=== PATIENT | male | born 1995 | race Caucasian/White ===

== ENCOUNTER 2019-04-11 09:48 | Day surgery (SDC) | payer BC ==
--- NOTE | 2019-04-08 11:03 | RAD REPORT ---
EXAM DESCRIPTION: RAD - Chest Pa And Lat (2 Views) - 04/08/2019 10:58 am CLINICAL HISTORY: preop Chest pain. COMPARISON: CHEST PA AND LAT 2 VIEW dated 07/29/2007 FINDINGS: The lungs are clear. The heart is normal in size. No displaced fractures. IMPRESSION: No acute or concerning finding suspected.
[2019-04-08 11:11] LABS: Absolute Lymphocytes (CBC) 2.4 K/uL (0.7-4.9); Basophils % 0.5 % (0-1.3); Lymphocytes % 33.5 % (15.3-44.8); MPV 8.3 fL (7.6-11.3); RBC Red Blood Cell Count 4.81 M/uL (4.33-5.43)
[2019-04-08 11:24] LABS: BUN Blood Urea Nitrogen 10 mg/dL (7-18); Bicarbonate 29 mmol/L (21-32); Glucose Level 154 mg/dL (74-106); Potassium 3.9 mmol/L (3.5-5.1); Sodium Level 139 mmol/L (136-145)
[2019-04-11] MEDS ORDERED: Ringers Lactate 1,000 ML IV ONE (10:04)
[2019-04-11] MEDS ORDERED: CEFAZOLIN/SWI 1gm 1 GM/10 ML SYR ONE (10:04)
[2019-04-11] MEDS ORDERED: BUPIVACAINE 0.5% PF 10 ML VIAL ONE (10:43)
[2019-04-11] MEDS ORDERED: dexAMETHasone 10 MG/ML VIAL ONE ×2 (10:46)
[2019-04-11] MEDS ORDERED: ROPLVACAINE HCL 20 ML ONE (10:46)
[2019-04-11] MEDS ORDERED: LIDOCAINE 2% MPF 5 ML VIAL ONE ×2 (10:46)
[2019-04-11] MEDS ORDERED: NS 0.9% VIAL 20 ML ONE (10:46)
[2019-04-11] MEDS ORDERED: FENTANYL CITR 100 MCG/2 ML ONE (10:46)
[2019-04-11] MEDS ORDERED: propofoL 200 MG/20 ML VIAL IV ONE (10:46)
[2019-04-11] MEDS ORDERED: MIDAZOLAM HCL 2 MG/2 ML INJ ONE (10:46)
[2019-04-11] MEDS ORDERED: ONDANSETRON 4 MG/2 ML VIAL ONE (10:46)
[2019-04-11] MEDS ORDERED: KETOROLAC 30 MG/ML INJ ONE (11:34)
--- NOTE | 2019-04-11 11:54 | P.BOP ---
Preoperative diagnosis: 4 tender scrotal subcutaneous masses Postoperative diagnosis: same Primary procedure: Excisional bipsy tender scrotal subcutaneous masses: 1. Right lateral 2x2cm Secondary procedure: 2. left lateral 2x2cm, 3. Medial superior 1x1cm, 4. inferior 1x1cm Estimated blood loss: <10cc Specimen: masses x 4 Findings: masses x4 subQ does not penetrate inside scrotal sac. Anesthesia: General Complications: None Transferred to: Recovery Room Condition: Good
[2019-04-11] MEDS ORDERED: LABETALOL HCL 100 MG/20 ML ONE (12:35)
[2019-04-11] MEDS ORDERED: CODEINE 30MG/APAP 300MG TAB ONE (13:55)
[2019-04-11 15:11] VITALS: BP 149/88; TEMP 97.8; O2SAT 96
--- NOTE | 2019-04-12 00:38 | DS ---
Date of Discharge: 04/11/2019 Diagnosis: Four scrotal subcutaneous masses. Procedure: Excisional biopsy of 4 scrotal subcutaneous masses. Disposition: Home. Activity: As tolerated. No heavy lifting. Followup: Follow up in my office in 1 week. Call for appointment, [phone]. Keep area dry for 24 h ours, then may remove outer dressings and shower and then apply triple antibiotics and sterile gauze over the area. For medications, see orders. ANGELLA/SURAJ Voice ID: [id number] Report ID: [id number]
--- NOTE | 2019-04-12 00:44 | OP ---
Date of Procedure: 04/11/2019 Surgeon: Andrade Trejo MD Preoperative Diagnosis: Four tender scrotal subcutaneous masses. Postoperative Diagnosis: Four tender scrotal subcutaneous masses. Procedures: 1.Excisional biopsy of tender scrotal subcutaneous mass, right lateral, 2 x 2 cm. 2.Excisional biopsy of tender scrotal subcutaneous mass, left lateral, 2 x 2 cm. 3.Excisional biopsy of tender scrotal subcutaneous mass, medial superior 1 x 1 cm. 4.Excisional biopsy of tender scrotal subcutaneous mass, inferior 1 x 1 cm. Anesthesia: General plus local. Findings: Masses. The inside of the scrotum was not visualized. Testicles are not visualized. Indication For Procedure: This is the case of a male, who comes to us with 4 masses in the scrotal, different locations, increasing pain and discomfort. He sometimes see some ulcerations, so we procee d to evaluate him, he wants them excised. Does not seem to be going inside the scrotal sac, so benef its, alternatives, and risks of excision were fully explained, which include but are not limited to i nfection, bleeding, damage to adjacent structures, anesthesia complication, abscess, testicular damag e, OK, even . He also understands this may not relieve any symptoms. He might need more than o ne surgical intervention. He understood, signed a consent. Indications: The area of concern was marked by me and the patient in the holding room. Description Of Procedure: The patient was brought to the operating room, placed in supine position. Anesthesia was done without complication. The scrotal area was prepped and draped in a sterile fash ion. Time-out was called. Local anesthesia was applied in each lesion, each one was done individual ly but each in the same technique, which consisted of wedge incision of the skin since that subcutane ous mass seems to be attached to the skin all the way down to the subcutaneous tissue. We did not pe netrate in any of the cases the area of a scrotal sac. Then, after that, we obtained hemostasis of l ocal anesthetic and closed the area with 3-0 nylon interrupted. This was done in each procedure edyta vidually. Patient tolerated each procedure well. The area was covered with sterile dressings. Patricia ent was sent to Recovery in stable condition. ANGELLA/SURAJ Voice ID: [id number] Report ID: [id number]
== END 2019-04-11 14:45 | disposition home or self-care (01) ==
LOC: OR 09:48
PROVIDERS: ATTEND Surgery
PROC: 0VB50ZZ Excision of Scrotum, Open Approach (ICD-10-PCS; principal; 2019-04-11 11:45)
DX: N50.89 Other specified disorders of the male genital organs (principal); F90.9 Attention-deficit hyperactivity disorder, unspecified type; F41.8 Other specified anxiety disorders
CPT/HCPCS: 36415; 71046; 80048; 85025; 88305; J0690; J1100; J2250; J2405; J2704; J2795; J3010; J7120